=== PATIENT | male | born 1995 | race American Indian/Alaskan Native ===

== ENCOUNTER 2019-09-09 12:53 | Emergency (ER) | payer SELFPAY ==
[2019-09-09 13:12] VITALS: BP 134/90
--- NOTE | 2019-09-09 13:29 | Emergency Department Report ---
Blank Doc - Documentation Documentation: 23-year-old male that presents with chest pain and SOB. This initial assessment/diagnostic orders/clinical plan/treatment(s) is/are subject to change based on patient's health status, clinical progression and re- assessment by fellow clinical providers in the ED. Further treatment and workup at subsequent clinical providers discretion. Patient/guardians urged not to elope from the ED as their condition may be serious if not clinically assessed and managed. Initial orders include: 1- Patient sent to [facility] for further evaluation and treatment 2- EKG 3- CXR
--- NOTE | 2019-09-09 14:26 | XRay Report ---
CHEST PA AND LATERAL VIEWS INDICATION: cp/sob. COMPARISON: None. FINDINGS: Support devices: None. Heart: Within normal limits. Lungs/Pleura: No acute pulmonary or pleural findings. IMPRESSION: 1. No acute findings. Signer Name: Ben Wallis MD Signed: 09/09/2019 2:22 PM Workstation Name: [id number]
[2019-09-09] MEDS ORDERED: IPRATROPIUM/ALBUTEROL SULFATE 3 ML AMPUL.NEB IH ONE (15:11)
[2019-09-09] MEDS ORDERED: LORATADINE/PSEUDOEPHEDRINE 10-240 MG TAB 24HR PO ONE (15:11)
[2019-09-09] MEDS ORDERED: predniSONE 20 MG TAB PO ONE (15:11)
--- NOTE | 2019-09-09 15:11 | Emergency Department Report ---
Minor Respiratory - HPI Chief Complaint: Chest Pain Stated Complaint: CHEST PAIN Time Seen by Provider: 09/09/19 13:28 Duration: Today Pain Location: Chest Severity: mild Minor Respiratory: Yes Able to Tolerate Fluids, Yes Chest Pain, No Rhinorrhea, No Sore Throat, No Ear Pain, No Cough, No Sick Contacts, No Hemoptysis, No Shortness of Breath, No Fever Other History: Mr. Chamberlain is a 23-year-old -[place] male who comes to the ER complaining of chest pain. He states that it is in his middle of his chest. And associated with taking a deep breath. Heart rate on exam is 88. Patient has no risk factors for PE/DVT. He has no fever. He is not coughing. He denies shortness of breath. Patient has no comorbid conditions. Review of the EMR reveals a previous psychiatric evaluation. Patient was at work when the pain started. On exam patient has mild wheezing but is in no distress. No fever. No tachycardia or hypotension. No recent travel. ED Review of Systems ROS: Stated complaint: CHEST PAIN Other details as noted in HPI Comment: All other systems reviewed and negative ED Past Medical Hx - Past Medical History Previous Medical History?: Yes Hx Psychiatric Treatment: Yes - Surgical History Past Surgical History?: No - Family History Family history: no significant - Social History Smoking Status: Current Every Day Smoker Substance Use Type: None - Medications Home Medications: Home Medications Medication Instructions Recorded Confirmed Last Taken Type Cetirizine HCl [ZyrTEC] 10 mg PO DAILY #30 capsule 09/09/19 Unknown Rx predniSONE [Deltasone] 20 mg PO DAILY #5 tablet 09/09/19 Unknown Rx Minor Respiratory Exam - Exam General: Vital signs noted. No distress. Alert and acting appropriately. HEENT: Yes Moist Mucous Membranes, No Pharyngeal Erythema, No Pharyngeal Exudates, No Rhinorrhea, No Conjuctival Injection, No Frontal Tenderness, No Maxillary Tenderness Ear: Neither TM Bulge, Neither TM Erythema, Neither EAC Pain, Neither EAC Discharge Neck: Yes Supple, No Adenopathy Lungs: Yes Good Air Exchange, Yes Wheezes, No Ronchi, No Stridor, No Cough, No Labored Respirations, No Retractions, No Use of Accessory Muscles, No Other Abnormal Lung Sounds Heart: Yes Regular, No Murmur Abdomen: Yes Normal Bowel Sounds, No Tenderness, No Peritoneal Signs Skin: No Rash, No Edema Neurologic: Alert and oriented, no deficits. Musculoskeletal: Unremarkable. ED Course Vital Signs 09/09/19 13:07 Temperature 98.3 F Pulse Rate 98 H Respiratory 18 Rate Blood Pressure 134/90 O2 Sat by Pulse 98 Oximetry ED Medical Decision Making - EKG Data EKG shows normal: sinus rhythm Rate: normal - EKG Data When compared to previous EKG there are: no significant change Interpretation: other (early repol) - Radiology Data Radiology results: report reviewed, image reviewed - Medical Decision Making Twelve-lead EKG noted to have early repole. X-ray reveals no consolidation or groundglass appearance. Patient denies any use of drugs. He denies cocaine use. He does smoke daily. Patient denies fever, trauma or shortness of breath. No recent travel. Patient given a DuoNeb and steroids. Patient being discharged to home with PCP follow-up. I have a low index of suspicion for Covid in this patient. Vital Signs 09/09/19 13:07 Temperature 98.3 F Pulse Rate 98 H Respiratory 18 Rate Blood Pressure 134/90 O2 Sat by Pulse 98 Oximetry Critical care attestation.: If time is entered above; I have spent that time in minutes in the direct care of this critically ill patient, excluding procedure time. ED Disposition Clinical Impression: URTI (acute upper respiratory infection) Disposition: - TO HOME OR SELFCARE Is pt being admited?: No Does the pt Need Aspirin: No Condition: Stable Instructions: Upper Respiratory Infection (ED), Viral Syndrome (ED) Additional Instructions: rest hydrate well with water avoid smoking meds as ordered today follow up with pcp referral below Prescriptions: predniSONE [Deltasone] 20 mg PO DAILY #5 tablet Cetirizine HCl [ZyrTEC] 10 mg PO DAILY #30 capsule Referrals: HELENE DOMINGUEZ MD [Staff Physician] - 3-5 Days Time of Disposition: 15:13
== END 2019-09-09 16:33 | disposition home or self-care (01) ==
LOC: ED 12:53
DX: J06.9 Acute upper respiratory infection, unspecified (principal); F17.200 Nicotine dependence, unspecified, uncomplicated; Z79.899 Other long term (current) drug therapy
CPT/HCPCS: 71046; 93005; 93010; 94640; 99283; J7512

== ENCOUNTER 2019-09-24 10:29 | Emergency (ER) | payer SELFPAY | END 2019-09-24 10:48 | disposition left against medical advice (07) | LOC: ED 10:29 | DX: R51 Headache (principal); Z53.21 Procedure and treatment not carried out due to patient leaving prior to being seen by health care provider ==

== ENCOUNTER 2019-09-24 15:50 | Emergency (ER) | payer SELFPAY ==
[2019-09-24 16:00] VITALS: BP 155/89
[2019-09-24] MEDS ORDERED: predniSONE 20 MG TAB PO ONE (17:43)
[2019-09-24] MEDS ORDERED: ONDANSETRON 4 MG ODT TAB PO ONE (17:43)
[2019-09-24] MEDS ORDERED: ACETAMINOPEN W/CODEINE 120-12MG ORAL LIQD 5 ML PO ONE (17:43)
--- NOTE | 2019-09-24 17:50 | Emergency Department Report ---
Vomiting/Diarrhea - HPI Chief Complaint: Nausea/Vomiting/Diarrhea Stated Complaint: VOMITING/SORE THROAT/BODY ACHES Time Seen by Provider: 09/24/19 17:38 Duration: 1 Day Severity: moderate Nausea/Vomiting Severity: Mild Diarrhea Severity: Mild Pain Location: Generalized Pain Severity: Mild Symptoms: Yes Fever, Yes Able to Tolerate Fluids (but with some pain), No Watery Diarrhea, No Bloody diarrhea, No Recent Unusual Foods, No Recent Untreated Water, No Recent use of Antibiotics, No Family w/ Similar Symptoms, No Contacts w/ Similar Symptoms, No Rash, No Hematuria, No Recent URI Symptoms Other History: This is a 23-year-old male who presents the ED complaining of throat pain and body aches that began last night. Patient states today he started vomiting and has vomited several times today. Patient states that pain is worsened with swallowing any thing. Patient states he has not been around anyone that is been sick recently. He denies cough, chest pain, shortness of breath blurry vision or any other symptoms. ED Review of Systems ROS: Stated complaint: VOMITING/SORE THROAT/BODY ACHES Other details as noted in HPI Comment: All other systems reviewed and negative ED Past Medical Hx - Past Medical History Hx Psychiatric Treatment: Yes - Surgical History Past Surgical History?: No - Social History Smoking Status: Never Smoker Substance Use Type: Alcohol - Medications Home Medications: Home Medications Medication Instructions Recorded Confirmed Last Taken Type Cetirizine HCl [ZyrTEC] 10 mg PO DAILY #30 capsule 09/09/19 Unknown Rx predniSONE [Deltasone] 20 mg PO DAILY #5 tablet 09/09/19 Unknown Rx Acetamin/Codeine 120-12Mg/5 ml 5 ml PO TID PRN 4 Days #60 ml 09/24/19 Unknown Rx [Tylenol/Codeine] Nystas/Diphen/Xyl Visc/Mylanta 15 ml MM Q6H PRN #120 ml 09/24/19 Unknown Rx [Magic Mouthwash] Vomiting Diarrhea Exam - Exam General: Vital signs noted. No distress. Alert and acting appropriately. HEENT: Yes Pharyngeal Erythema (Tonsil erythema and swelling bilaterally.), Yes Pharyngeal Exudates (Anterior cervical tenderness noted), Yes Moist Mucous Membranes, No Rhinorrhea, No Conjuctival Injection, No Frontal Tenderness, No Maxillary Tenderness Neck: No Adenopathy, No Rigidity Lungs: Yes Clear Lung Sounds, Yes Good Air Exchange, No Wheezes, No Stridor, No Cough, No Nasal Flaring, No Retractions, No Use of Accessory Muscles Heart exam: Regular: Yes, Murmur: No, Tachycardia: No Abdomen: Tenderness: No, Peritoneal Signs: No, Distention: No, Hyperactive Bowel sounds: No Skin exam: Rash: No, Edema: No, Normal turgor: Yes Neurologic: Alert and oriented, no deficits. Musculoskeletal: Unremarkable. ED Course Vital Signs 09/24/19 15:55 Temperature 99.9 F H Pulse Rate 114 H Respiratory 18 Rate Blood Pressure 155/89 ED Medical Decision Making - Medical Decision Making 23-year-old male presents with pharyngitis. ED course: Rapid strep tests ordered rapid strep test positive Due to centor's criteria patient 4 out of 5 so clinical diagnosis of pharyngitis Patient received 1 dose of Tylenol, 1.2 million units of penicillin, 60 mg of prednisone. Fever responsive to one dose of Tylenol. Vital signs stable patient is in no acute or respiratory distress. Discussed findings with patient about the positive strep. Discussed treatment in ED with patient Discussed the patient that strep throat is contagious and to limit sharing spoons and such. Discussed with patient follow-up with primary care physician. Patient verbally states he understands and will comply to follow-up. Critical care attestation.: If time is entered above; I have spent that time in minutes in the direct care of this critically ill patient, excluding procedure time. ED Disposition Clinical Impression: Strep pharyngitis, Pharyngitis, Acute tonsillitis Disposition: TO HOME OR SELFCARE Is pt being admited?: No Does the pt Need Aspirin: No Condition: Stable Instructions: Tonsillitis (ED), Strep Throat (ED) Additional Instructions: Make sure to follow up with the primary care physician as discussed. Take all your medications as you've been prescribed. If you have any worsening symptoms or develop new symptoms please return to ED immediately. Referrals: PRIMARY CARE, [Primary Care Provider] - 3-5 Days [facility] [Outside] - 3-5 Days [facility] [Outside] - 3-5 Days Forms: Accompanied Note, Work/School Release Form(ED)
[2019-09-24] MEDS ORDERED: PENICILLIN G BENZATHINE 1.2 MILLION UNIT/2 ML INJ IM ONE (18:31)
[2019-09-24] MEDS ORDERED: IBUPROFEN 800 MG TAB ONE (19:33)
== END 2019-09-24 19:35 | disposition home or self-care (01) ==
LOC: ED 15:50
DX: J02.0 Streptococcal pharyngitis (principal); Z79.899 Other long term (current) drug therapy
CPT/HCPCS: 87430; 96372; 99283; J0561; J7512; Q0162